=== PATIENT | female | born 1960 | race Caucasian/White ===

== ENCOUNTER → 2017-09-07 16:34 | Outpatient (CLI) | payer BC ==
[2013-12-20 07:33] VITALS: BMI 42.6
[~2017-09-07 16:34] MED LIST: ALLEGRA180 MG PO; BYSTOLIC5 MG PO; CO Q-1030 MG; KLOR-CON 88 MEQ; LEVOTHROID75 MCG PO; LIPITOR40 MG PO; MULTI-DAY VITAM1 TAB PO; NORCO 10/325 TA1 TA1 PO; NORCO 5/325 TAB1 TA1 PO; ROBAXIN-750750 MG PO
== END | disposition home or self-care (01) ==
LOC: D.MAMMO 13:00
DX: Z12.31 Encounter for screening mammogram for malignant neoplasm of breast (principal)

== ENCOUNTER → 2018-06-28 14:04 | Outpatient (CLI) | payer BC ==
[2013-12-20 07:33] VITALS: BMI 42.6
== END | disposition home or self-care (01) ==
LOC: D.RAD 14:04
DX: M79.671 Pain in right foot (principal)

== ENCOUNTER → 2018-10-16 16:34 | Outpatient (CLI) | payer BC ==
[2013-12-20 07:33] VITALS: BMI 42.6
== END | disposition home or self-care (01) ==
LOC: D.MAMMO 09-24 13:00
DX: Z12.31 Encounter for screening mammogram for malignant neoplasm of breast (principal)

== ENCOUNTER → 2019-11-28 10:00 | Outpatient (CLI) | payer BC ==
[2013-12-20 07:33] VITALS: BMI 42.6
== END | disposition home or self-care (01) ==
LOC: D.MAMMO 11-12 08:15
PROVIDERS: ATTEND Family Medicine
DX: Z12.31 Encounter for screening mammogram for malignant neoplasm of breast (principal)

== ENCOUNTER 2020-12-08 08:30 | Outpatient (CLI) | payer BC ==
[2013-12-20 07:33] VITALS: BMI 42.6
== END 2020-12-08 09:00 | disposition home or self-care (01) ==
LOC: D.MAMMO 08:30
PROVIDERS: ATTEND Family Medicine
DX: Z12.31 Encounter for screening mammogram for malignant neoplasm of breast (principal)